=== PATIENT | female | born 1960 | race American Indian/Alaskan Native ===

== ENCOUNTER 2019-03-23 11:04 | Emergency (ER) | payer MEDICARE ==
[2019-03-23 11:18] VITALS: BP 107/63
--- NOTE | 2019-03-23 11:19 | Event Note ---
ED Screening Note ED Screening Note: pt has been feeling intermittent dizziness for a year and a half was feeling dizzy while getting off the bus today and had a fall off the bus unsure of last tetanus abrasions to the face and left elbow c/o left elbow, left knee, and right eye pain This initial assessment/diagnostic orders/clinical plan/treatment(s) is/are subject to change based on patients health status, clinical progression and re- assessment by fellow clinical providers in the ED. Further treatment and workup at subsequent clinical providers discretion. Patient/guardian urged not to elope from the ED as their condition may be serious if not clinically assessed and managed. Initial orders include: XR of the left knee, left elbow, CT head, EKG, UA
[2019-03-23 12:39] LABS: Bilirubin,Urine NEG (Negative); Blood,Urine NEG (Negative); Color,Urine Yellow (Yellow); Hyaline Casts,Urine 1 /LPF; Mucus,Urine FEW /HPF; Protein,Urine <15 mg/dL mg/dL (Negative); Urobilinogen,Urine < 2.0 mg/dL (<2.0); WBC,Urine < 1.0 /HPF (0.0-6.0)
[2019-03-23 12:52] LABS: BUN/Creatinine Ratio 18; Blood Urea Nitrogen 18 mg/dL (7-17); Calcium 9.8 mg/dL (8.4-10.2); Hemolysis Index 6
[2019-03-23 12:54] LABS: Hematocrit 36.1 % (30.3-42.9); Mean Corpuscular HGB Conc 33 % (30-34); Mean Corpuscular Volume 89 fl (79-97); Red Blood Count 4.04 M/mm3 (3.65-5.03); Red Cell Distribution Width 17.2 % (13.2-15.2)
[2019-03-23 12:58] LABS: Platelet Count 78 K/mm3 (140-440)
--- NOTE | 2019-03-23 13:13 | Cat Scan Report ---
CT head/brain wo con INDICATION: Syncope, fall. TECHNIQUE: Routine CT head without contrast. All CT scans at this location are performed using CT dos e reduction for ALARA by means of automated exposure control. COMPARISON: None. FINDINGS: BRAIN / INTRACRANIAL CONTENTS: No acute hemorrhage, mass effect, midline shift, or hydrocephalus. No appreciable acute large territorial or lacunar infarct. No chronic infarct or focal atrophy. Normal b rain volume and ventricular/sulcal size for age. ORBITS: Bilateral phthisis bulbi noted. SINUSES / MASTOIDS: No significant abnormality of visualized sinuses and mastoid air cells. ADDITIONAL FINDINGS: None. IMPRESSION: 1. No acute intracranial abnormality. Signer Name: Miquel Grimm MD Signed: 03/23/2019 1:08 PM Workstation Name: [id number]
--- NOTE | 2019-03-23 13:27 | XRay Report ---
Left elbow, 3 views INDICATION: Fall, acute left elbow pain. COMPARISON: None. IMPRESSION: No acute osseous or soft tissue abnormality. No significant DJD. Left knee, 3 views INDICATION: Fall, acute left knee pain. COMPARISON: None. IMPRESSION: No acute osseous or soft tissue abnormality. Minimal tibial spine spurring and retrop atellar spurring is identified. A small enthesophyte is identified along the superior patella. Signer Name: Pedro Redding Jr, MD Signed: 03/23/2019 1:23 PM Workstation Name: [id number]
[2019-03-23] MEDS ORDERED: ULTRAM PO ONE (13:58)
[2019-03-23] MEDS ORDERED: IBUPROFEN PO ONE (13:58)
--- NOTE | 2019-03-23 14:25 | Emergency Department Report ---
ED Fall HPI - General Chief Complaint: Fall Stated Complaint: DIZZY/FELL Time Seen by Provider: 03/23/19 11:15 Source: patient Mode of arrival: Wheelchair - History of Present Illness Initial Comments: Patient is a 58-year-old female who is here presenting status post a fall. Patient states that she tripped and fell earlier today at home. Patient did hit her head but there was no loss of consciousness according to the patient patient's sister as well as her caregiver. Patient has a history of psychiatric illness and her caregiver believes that occasionally she will fall on purpose. Patient's sister states that she does occasionally state that she has some mild dizziness however there are times when she just tripped over her own feet and is clumsy. Patient is complaining of mild headache as well as left elbow and left knee pain. . Loss of Consciousness: none Prolonged Down Time?: no Symptoms Prior to Fall: none Location: head Location - Extremities: Left: Elbow, Knee Severity scale (0 -10): 5 Quality: burning Context: tripped/slipped Associated Symptoms: denies: neck pain, numbness, weakness, shortness of breath, abdominal pain, hematuria, unable to walk, lightheaded, vertigo, confusion - Related Data Previous Rx's Medication Instructions Recorded Last Taken Type Neomy/Baci/Polymyx Oint [Triple 15 gm TP BID #1 oint 08/06/16 Unknown Rx Antibiotic] Ibuprofen [Motrin 600 MG tab] 600 mg PO Q8H PRN #20 tablet 03/23/19 Unknown Rx methOCARBAMOL [Robaxin TAB] 500 mg PO Q6H PRN #14 tablet 03/23/19 Unknown Rx Allergies Allergy/AdvReac Type Severity Reaction Status Date / Time No Known Allergies Allergy Unverified 07/19/14 19:21 ED Review of Systems ROS: Stated complaint: DIZZY/FELL Other details as noted in HPI Comment: All other systems reviewed and negative ED Past Medical Hx - Past Medical History Previous Medical History?: Yes Hx Psychiatric Treatment: Yes Additional medical history: MR - Social History Smoking Status: Never Smoker Substance Use Type: None - Medications Home Medications: Home Medications Medication Instructions Recorded Confirmed Last Taken Type Neomy/Baci/Polymyx Oint [Triple 15 gm TP BID #1 oint 08/06/16 Unknown Rx Antibiotic] Ibuprofen [Motrin 600 MG tab] 600 mg PO Q8H PRN #20 tablet 03/23/19 Unknown Rx methOCARBAMOL [Robaxin TAB] 500 mg PO Q6H PRN #14 tablet 03/23/19 Unknown Rx ED Physical Exam - General Limitations: No Limitations General appearance: alert, in no apparent distress - Head Head exam: Present: atraumatic, normocephalic, other (patient with abrasions over the bridge of the nose and forehead) - Eye Eye exam: Present: normal appearance - ENT ENT exam: Present: mucous membranes moist - Neck Neck exam: Present: normal inspection - Respiratory Respiratory exam: Present: normal lung sounds bilaterally. Absent: respiratory distress, wheezes, rales, rhonchi - Cardiovascular Cardiovascular Exam: Present: regular rate, normal rhythm. Absent: systolic murmur, diastolic murmur, rubs, gallop - GI/Abdominal GI/Abdominal exam: Present: soft, normal bowel sounds. Absent: distended, tenderness, guarding, rebound - Extremities Exam Extremities exam: Present: normal inspection, other (with full range of motion to all of her joints. Patient has scrapes on the left elbow as well as left knee.) - Back Exam Back exam: Present: normal inspection - Neurological Exam Neurological exam: Present: alert, oriented X3 - Psychiatric Psychiatric exam: Present: normal affect, normal mood - Skin Skin exam: Present: warm, dry, intact, normal color. Absent: rash ED Course Vital Signs 03/23/19 11:16 Temperature 98.2 F Pulse Rate 84 Respiratory 18 Rate Blood Pressure 107/63 O2 Sat by Pulse 99 Oximetry ED Medical Decision Making - Lab Data Result diagrams: 03/23/19 12:00 03/23/19 12:00 - Radiology Data [facility] [address] [place] [address] Cat Scan Report Signed Patient: YEMI HADLEY MR#: [id number] : 1960 Acct:[id number] Age/Sex: 58 / F ADM Date: 03/23/19 Loc: ED Attending Dr: Ordering Physician: SPENSER LAU Date of Service: 03/23/19 Procedure(s): CT head/brain wo con Accession Number(s): [id number] cc: SPENSER LAU CT head/brain wo con INDICATION: Syncope, fall. TECHNIQUE: Routine CT head without contrast. All CT scans at this location are performed using CT dose reduction for ALARA by means of automated exposure control. COMPARISON: None. FINDINGS: BRAIN / INTRACRANIAL CONTENTS: No acute hemorrhage, mass effect, midline shift, or hydrocephalus. No appreciable acute large territorial or lacunar infarct. No chronic infarct or focal atrophy. Normal brain volume and ventricular/sulcal size for age. ORBITS: Bilateral phthisis bulbi noted. SINUSES / MASTOIDS: No significant abnormality of visualized sinuses and mastoid air cells. ADDITIONAL FINDINGS: None. IMPRESSION: 1. No acute intracranial abnormality. Signer Name: Miquel Grimm MD Signed: 03/23/2019 1:08 PM Workstation Name: [id number] Transcribed By: KONG Dictated By: Miquel Grimm MD Electronically Authenticated By: Miquel Grimm MD Signed Date/Time: 03/23/19 1308 X-ray of the left elbow and left knee showed no acute processes well. - Medical Decision Making Is no evidence of any brain atrophy brain bleed or acute or subacute stroke. Patient moving all extremities with full range of motion. Patient has good strength. Patient likely just tripped and fell resulting in some abrasions to the body. Patient be discharged home. Critical care attestation.: If time is entered above; I have spent that time in minutes in the direct care of this critically ill patient, excluding procedure time. ED Disposition Clinical Impression: Abrasion, multiple sites, Musculoskeletal pain Closed head injury Qualifiers: Encounter type: initial encounter Qualified Code(s): S09.90XA - Unspecified injury of head, initial encounter Facial abrasion Qualifiers: Encounter type: initial encounter Qualified Code(s): S00.81XA - Abrasion of other part of head, initial encounter Disposition: DC-01 TO HOME OR SELFCARE Is pt being admited?: No Does the pt Need Aspirin: No Condition: Stable Instructions: Fall Prevention for Older Adults (ED), Abrasion (ED) Referrals: ARLEY MORRISSEY MD [Primary Care Provider] - 3-5 Days Time of Disposition: 14:25
[2019-03-23 15:41] LABS: Basophils % (Manual) 0 % (0.0-1.8); Eosinophils % (Manual) 0 % (0.0-4.3); Total Cells Counted 100
[2019-03-23 15:42] LABS: Anisocytosis 1+; Platelet Estimate Consistent w Auto
[2019-03-23 15:43] LABS: Ovalocytes Few
== END 2019-03-23 14:42 | disposition home or self-care (01) ==
LOC: ED 11:04
DX: S00.31XA Abrasion of nose, initial encounter (principal); S00.81XA Abrasion of other part of head, initial encounter; M25.562 Pain in left knee; M25.522 Pain in left elbow; R42 Dizziness and giddiness; Z79.1 Long term (current) use of non-steroidal anti-inflammatories (NSAID); W01.198A Fall on same level from slipping, tripping and stumbling with subsequent striking against other object, initial encounter; Y93.89 Activity, other specified; Y92.89 Other specified places as the place of occurrence of the external cause; Y99.8 Other external cause status
CPT/HCPCS: 36415; 70450; 80048; 81001; 85007; 85025; 93005; 93010; 99284